=== PATIENT | male | born 1985 | race Asian ===

== ENCOUNTER → 2024-06-18 12:13 | Outpatient (REF) | payer BC, SELFPAY | LOC: RAD 12:13 | PROVIDERS: ATTENDING PHYSICIAN Urology | DX: R31.0 Gross hematuria (principal) | CPT/HCPCS: 74178; Q9967 ==

== ENCOUNTER → 2024-08-21 12:23 | Outpatient (REF) | payer OTHER, SELFPAY | LOC: RAD 12:23 | PROVIDERS: ATTENDING PHYSICIAN Urology | DX: N20.0 Calculus of kidney (principal); N21.1 Calculus in urethra | CPT/HCPCS: 74018 ==

== ENCOUNTER → 2025-04-10 13:54 | Outpatient (REF) | payer OTHER, SELFPAY | LOC: RAD 13:54 | PROVIDERS: ATTENDING PHYSICIAN Urology | DX: N21.1 Calculus in urethra (principal); N20.0 Calculus of kidney | CPT/HCPCS: 74018 ==